=== PATIENT | male | born 1995 ===

== ENCOUNTER 2017-10-28 12:55 | Emergency (ER) | payer MEDICAID ==
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
[2017-10-28] MEDS ORDERED: Propofol 10 mg/ml Inj (100 ml) IV SCH (14:00)
[2017-10-28] MEDS ORDERED: Propofol 10 mg/ml Inj (20 ML) ONE (14:04)
[2017-10-28 14:23] VITALS: TEMP 98.3
[2017-10-28 14:32] VITALS: RESP 18
[2017-10-28 14:57] VITALS: BP 116/64; PULSE 63
--- NOTE | 2017-10-28 15:43 | RAD ---
PROCEDURE: HISTORY: post reduction COMPARISON: 10/28/2017. . Pre reduction TECHNIQUE: Single frontal view FINDINGS: Humeral head is returned to the normal glenoid fossa anatomical location IMPRESSION: Successful reduction of prior anterior inferior right humeral dislocation from glenoid
--- NOTE | 2017-10-28 15:50 | RAD ---
PROCEDURE: Radiographs of the Right Shoulder HISTORY: dislocation COMPARISON: No prior. FINDINGS: BONES: No fracture appreciated JOINTS: No arthrosis. Anterior inferior dislocation -right humeral head relative to glenoid fossa. SOFT TISSUES: Tissue swelling over shoulder OTHER FINDINGS: None. IMPRESSION: Anterior inferior right shoulder dislocation. No gross fracture appreciated
[2017-10-28 17:40] VITALS: O2SAT 98
== END 2017-10-28 14:58 | disposition home or self-care (01) ==
LOC: C.ER 12:55
DX: S43.014A Anterior dislocation of right humerus, initial encounter (principal); W18.30XA Fall on same level, unspecified, initial encounter; Y93.55 Activity, bike riding